=== PATIENT | female | born 1950 | race Caucasian/White ===

== ENCOUNTER 2016-10-23 18:54 | Emergency (ER) | payer OTHER ==
--- NOTE | ~2016-10-23 | CT4 ---
[facility] A Service of [facility] RADIOLOGY TEXT RESULTS PATIENT: SVETLANA KEATING LOCATION: [facility] : [birth year] UNIT #: [id number] AGE: [address]: Tomer Lopez MD SEX: F ORDER DR: [id number] [facility] [address] [place], [place] [address] [id number] E MR#: [id number] Acc #: [id number] NAME: SVETLANA KEATING : 1950 SEX: F STUDY DATE/TIME: 10/23/2016 20:26 UNIT: [facility] ROOM: STUDY DESCRIPTION: CT Abd and Pelv Wo Cont Attending Physician: Tomer Lopez Ordering Physician: Ed Doctor [id number] [facility] Primary Care Physician: Primary Care Physician No MEDICAL IMAGING REPORT This report is preliminary unless electronic signature is present EXAM CT abdomen and pelvis 10/23/16 INDICATIONS Painful knot an incision for kidney removal and 08/25/2016. TECHNIQUE Axial images were obtained through the abdomen and pelvis following oral contrast administration. Multiplanar reformats were obtained. COMPARISON STUDIES 08/09/2016. This CT exam was performed with one or more of the following radiation dose reduction techniques: automatic exposure control, adjustment of mA and/or kV according to patient size, and iterative reconstruction. FINDINGS Abdomen: There is some atelectasis in the lung bases. Gallbladder is unremarkable. Tiny nonobstructing stones are present in the right kidney. No ureteral stones are seen and there is no hydronephrosis. There has been interval left nephrectomy. There is some fat stranding in the operative bed which is not unexpected. There is splenomegaly. The spleen measures 16.6 cm in ldfl-ft-ngaz length. The unenhanced solid organs are otherwise normal. The GI tract is normal. There is a fluid and gas collection in the ventral abdominal wall corresponding to the area of palpable concern. This is above the umbilicus and extends down to the level of the umbilicus. It is poorly defined. It measures about 3.4 x 1.8 cm in greatest axial dimension. It may cover a length of as much as about 6 cm craniocaudally. This could be a seroma or an abscess. There is some overlying skin thickening suggesting some cellulitis. Correlate clinically with physical exam findings. [facility] A Service of [facility] RADIOLOGY TEXT RESULTS PATIENT: SVETLANA KEATING LOCATION: [facility] : [birth year] UNIT #: [id number] AGE: [address]: Tomer Lopez MD SEX: F ORDER DR: Pelvis: The urinary bladder is normal. Solid pelvic organs are normal. The appendix is normal. Remainder of the GI tract is normal as well. No suspicious osseous lesions in the abdomen or pelvis. IMPRESSION 1. Fluid and gas collection in the ventral abdominal wall to the left of midline corresponding to area of palpable concern. This could reflect an abscess. There is overlying skin thickening suggesting some cellulitis. Correlate with physical exam findings. 2. Interval left nephrectomy. There is postoperative fat stranding in the nephrectomy bed which is not unexpected. 3. Nonobstructing stones in the right kidney. No ureteral stones, and no hydronephrosis. 4. Splenomegaly. 5. Normal GI tract including the appendix. Dictated by... Jean Mario Jr., M.D. THIS IS AN ELECTRONICALLY VERIFIED REPORT Jean Mario Jr., M.D. at 10/24/2016 8:06 AM Daniel TD: 10/23/2016 22:27 JOB #: [id number] MEDICAL IMAGING REPORT Page 1 of 1 COPY
[2016-10-23 18:23] LABS: URINE SOURCE CLEAN CATCH
[2016-10-23 18:31] LABS: URINE APPEARANCE CLEAR; URINE BILIRUBIN NEG (NEG); URINE BLOOD NEG (NEG); URINE COLOR YELLOW; URINE GLUCOSE 100 MG/DL (NEG); URINE KETONE NEG (NEG); URINE LEUKOCYTE ESTERASE 2+ (NEG); URINE NITRATE NEG (NEG); URINE PH 6.5 (5-8); URINE PROTEIN TRACE (NEG); URINE SPECIFIC GRAVITY 1.016 (1.003-1.035)
[2016-10-23 18:33] LABS: CULTURE INDICATED? YES; U HYALINE CASTS AUWI 0-2 /[LPF]; URINE BACTERIA AUWI NEG (NEGATIVE); URINE SQUAMOUS EPITHELIAL CELL OCC /[HPF]; UWBCS1 AUWI 25-50 (0-5)
[~2016-10-23 18:54] MED LIST: ACETAMINOPHEN650 M3 PO; ACETAMINOPHEN650 M4 PO; ALBUTEROL17 GM INH; ALBUTEROL20 ml INH; ASPIR-TRIN325 MG PO; ASPIRIN81 M2 PO; ASPIRIN81 MG PO; ATENOLOL25 MG PO; BACTRIM DS TABL1 TA1 PO; BUSPIRONE HCL10 MG PO; CARAFATE1 G PO; CIPRO PO; CIPROFLOXACIN500 M1 PO; CLOPIDOGREL BIS75 MG PO; CLOPIDOGREL75 MG PO; DOCUSATE SODIU100 MG PO; ERYTHROMYC3.5 GM OPT OD; FLAGYL PO; FLEXERIL10 M1 PO; FLEXERIL10 MG PO; FLONASE 0.05% N16 G1; FLORASTORKIDS250 MG PO; GLUCOPHAGE500 M1 PO; GLUCOPHAGE500 MG PO; GUAIFENESIN W/C10 ML PO; HYDROCODON-ACE1 EAC7 PO; HYDROCODONE/APA1 T16 PO; HYDROXYZINE HCL25 M1 PO; IBUPROFEN800 MG PO; IMDUR-ER30 M1 PO; KEFLEX500 MG PO; KEPPRA500 M1 DOB; LEVAQUIN PO; LEVEMIR100 UNITS/ SUBQ; LIPITOR40 MG PO; LIPITOR80 MG PO; LORTAB 5/500 TA1 TA2 PO; LOW DOSE ASPIRI81 M2 PO; METFORMIN HCL500 M1 PO; MOTRIN600 M1 PO; MUCUS ER600 MG PO; MYSOLINE50 M1 PO; NO MEDS; PHENERGAN PO; PHENERGAN SUPP25 MG PR; PRADAXA150 MG PO; PREDNISONE PO; PRILOSEC PO; PROTONIX PO; RANEXA500 MG PO; RISA-BID CAPLE1 EAC1 PO; TENORMIN50 MG PO; TESSALON PERLE100 M1 PO; VICODIN 5/1 TAB 5/50 PO; ZESTRIL10 M1 PO; ZITHROMAX PO
[2016-10-23 18:57] LABS: BASOPHIL% 0.4 % (0-2.5); EOSINOPHIL% 0.5 % (0.0-7.0); HEMATOCRIT 33.7 % (35.0-45.0); HEMOGLOBIN 10.6 gm/dL (12.0-16.0); LYMPHOCYTE# 1.3 X10e3 (1.0-3.5); LYMPHOCYTE% 28.5 % (17.0-45.0); MEAN CELL VOLUME 78.5 FL (83-96); MEAN CORPUSCULAR HEMOGLOBIN 24.6 PG (28-34); MEAN CORPUSCULAR HGB CONC 31.4 g/dL (30-36); MEAN PLATELET VOLUME 7.8 FL (6.5-11.5); MONOCYTE# 0.5 X10e3 (0-1.0); MONOCYTE% 12.4 % (3.0-12.0); NEUTROPHIL# 2.6 X10e3 (1.5-7.1); NEUTROPHIL% 58.2 % (40-75); PLATELET COUNT 152 X10e3 (140-420); RED BLOOD COUNT 4.29 X10e (3.90-5.30); RED CELL DISTRIBUTION WIDTH 16.1 % (11.0-15.5); WHITE BLOOD COUNT 4.4 X10e3 (4.0-10.5)
[2016-10-23 18:58] LABS: DIFF IND NO
[2016-10-23 19:23] LABS: ALBUMIN SERUM 3.9 g/dL (3.5-5.0); BILIRUBIN, DIRECT 0.1 mg/dL (0.0-0.2); BILIRUBIN,INDIRECT 0.3 mg/dL (0.0-0.9); BILIRUBIN,TOTAL 0.4 mg/dL (0.2-2.0); CALCIUM SERUM 9.7 mg/dL (8.4-10.2); CREATININE SERUM 1.1 mg/dL (0.6-1.4); GLOM FILT RATE Estimated 53.4 mL/min (>60); POTASSIUM 3.6 mmol/L (3.5-5.1)
== END 2016-10-23 23:15 ==
LOC: CED 18:54
PROVIDERS: Emergency Medicine
DX: T81.4XXA Infection following a procedure, initial encounter (principal); L02.211 Cutaneous abscess of abdominal wall; L03.311 Cellulitis of abdominal wall; I10 Essential (primary) hypertension; F41.9 Anxiety disorder, unspecified; Z98.890 Other specified postprocedural states; Z90.5 Acquired absence of kidney; Z88.8 Allergy status to other drugs, medicaments and biological substances; Z79.82 Long term (current) use of aspirin; Z79.899 Other long term (current) drug therapy
CPT/HCPCS: 36415; 74176; 80048; 80076; 81003; 82150; 83690; 85025; 87086; 96361; 96374; 96375; 99285; J0696; J2270; J2405; J2765

== ENCOUNTER 2016-12-09 11:55 | Emergency (ER) | payer OTHER ==
--- NOTE | ~2016-12-09 | CR173 ---
[facility] A Service of [facility] RADIOLOGY TEXT RESULTS PATIENT: SVETLANA KEATING LOCATION: [facility] : 54 UNIT #: [id number] AGE: [address]: Pao Shaikh SEX: F ORDER DR: [id number] [facility] [address] [place], [place] [address] [id number] E MR#: [id number] Acc #: [id number] NAME: SVETLANA KEATING : 1950 SEX: F STUDY DATE/TIME: 12/09/2016 13:46 UNIT: [facility] ROOM: STUDY DESCRIPTION: CR Knee 3 Views Rt Attending Physician: Pao Shaikh Pa-C Ordering Physician: Chi De Jesus A.P.R.N. Primary Care Physician: No Primary Care Physician MEDICAL IMAGING REPORT This report is preliminary unless electronic signature is present EXAM Right knee, 3 views. COMPARISON October 20, 2015, and April 18, 2012. INDICATION 66-year-old female with right knee pain after falling today. FINDINGS There is stable calcified joint body in the anterior knee joint below the patella. This measures up to 8 mm. Second measurement measures up to a centimeter transverse. Bones are anatomically aligned. No evidence of acute fracture. No suprapatellar effusion. IMPRESSION 1. No acute fracture, dislocation or suprapatellar effusion. 2. Stable calcified joint body measuring up to a centimeter. Dictated by... Eben Sethi M.D. THIS IS AN ELECTRONICALLY VERIFIED REPORT Eben Sethi M.D. at 12/14/2016 8:54 PM BRIANA/fernanda TD: 12/09/2016 15:10 JOB #: [id number] MEDICAL IMAGING REPORT Page 1 of 1 COPY
== END 2016-12-09 15:17 | disposition home or self-care (01) ==
LOC: CFTX 11:55 → CED 11:55 → CFTX 12:53
DX: S89.91XA Unspecified injury of right lower leg, initial encounter (principal); E11.9 Type 2 diabetes mellitus without complications; I10 Essential (primary) hypertension; W01.0XXA Fall on same level from slipping, tripping and stumbling without subsequent striking against object, initial encounter; Y92.9 Unspecified place or not applicable
CPT/HCPCS: 73562; 99283

== ENCOUNTER 2017-01-28 13:35 | Emergency (ER) | payer OTHER ==
[~2017-01-28] VITALS: Ht 162.6 cm; Wt 66.7 kg
== END 2017-01-28 14:12 | disposition home or self-care (01) ==
LOC: CED 13:35
DX: K08.89 Other specified disorders of teeth and supporting structures (principal); E11.9 Type 2 diabetes mellitus without complications; I10 Essential (primary) hypertension; Z88.8 Allergy status to other drugs, medicaments and biological substances
CPT/HCPCS: 99282

== ENCOUNTER 2017-02-25 23:50 | Emergency (ER) | payer OTHER ==
--- NOTE | ~2017-02-25 | CT71 ---
[facility] A Service [facility] RADIOLOGY TEXT RESULTS PATIENT: SVETLANA KEATING LOCATION: [facility] : 54 UNIT #: [id number] AGE: [address]: Tomer Lopez MD SEX: F ORDER DR: [id number] [address] [address] [id number] E MR#: [id number] Acc #: [id number] NAME: SVETLANA KEATING : 1950 SEX: F STUDY DATE/TIME: 02/26/2017 1:33 UNIT: [facility] ROOM: STUDY DESCRIPTION: CT Head Wo Contrast Attending Physician: Socrates Lopez M.D. Ordering Physician: Socrates Lopez M.D. Primary Care Physician: Primary Care Physician No MEDICAL IMAGING REPORT This report is preliminary unless electronic signature is present EXAM CT head without contrast INDICATION Seizure and lethargy tonight. PROCEDURE Unenhanced CT of the head. This CT examination was performed with one or more of the following radiation dose reduction techniques: automatic exposure control, adjustment of mA and/or kV according to patient size, and iterative reconstruction. COMPARISON 02/20/2017. FINDINGS No acute hemorrhage, abnormal mass effect, extraaxial fluid collection or hydrocephalus. No depressed calvarial fracture. The paranasal sinuses and mastoid air cells are clear. IMPRESSION No acute intracranial findings. Dictated by... Socrates Montalvo M.D. THIS IS AN ELECTRONICALLY VERIFIED REPORT Socrates Montalvo M.D. at 02/26/2017 10:07 PM VIKA/ventura TD: 02/26/2017 08:00 JOB #: [id number] [facility] A Service of [facility] RADIOLOGY TEXT RESULTS PATIENT: SVETLANA KEATING LOCATION: [facility] : 54 UNIT #: [id number] AGE: [address]: Tomer Lopez MD SEX: F ORDER DR: MEDICAL IMAGING REPORT Page 1 of 1 COPY
[2017-02-26 00:23] LABS: POC - CKMB 1.9 ng/mL (0.0-7.9); POC - TROPONIN <0.05 ng/mL (<=0.05)
[2017-02-26 00:49] LABS: BASOPHIL% 0.3 % (0-2.5); EOSINOPHIL% 1.1 % (0.0-7.0); HEMATOCRIT 34.1 % (35.0-45.0); HEMOGLOBIN 11.1 gm/dL (12.0-16.0); LYMPHOCYTE# 1.2 X10e3 (1.0-3.5); MEAN CELL VOLUME 82.4 FL (83-96); MEAN CORPUSCULAR HEMOGLOBIN 26.9 PG (28-34); MEAN CORPUSCULAR HGB CONC 32.7 g/dL (30-36); MEAN PLATELET VOLUME 7.8 FL (6.5-11.5); MONOCYTE# 0.4 X10e3 (0-1.0); MONOCYTE% 12.6 % (3.0-12.0); NEUTROPHIL# 1.5 X10e3 (1.5-7.1); PLATELET COUNT 108 X10e3 (140-420); RED BLOOD COUNT 4.13 X10e (3.90-5.30); RED CELL DISTRIBUTION WIDTH 16.7 % (11.0-15.5); WHITE BLOOD COUNT 3.2 X10e3 (4.0-10.5)
[2017-02-26 00:50] LABS: DIFF IND NO
[2017-02-26 01:25] LABS: ALBUMIN SERUM 4.1 g/dL (3.5-5.0); ALKALINE PHOSPHATASE 59 U/L (32-92); ALT (SGPT) 25 U/L (10-40); AST (SGOT) 30 U/L (10-42); BILIRUBIN, DIRECT 0.1 mg/dL (0.0-0.2); BILIRUBIN,TOTAL <0.1 mg/dL (0.2-2.0); BLOOD UREA NITROGEN 12 mg/dL (9-23); BUN/CREATININE RATIO 13.33; CALCIUM SERUM 9.9 mg/dL (8.4-10.2); CARBON DIOXIDE 20 mmol/L (22-31); CHLORIDE 107 mmol/L (100-111); CREATININE SERUM 0.9 mg/dL (0.6-1.4); GLOM FILT RATE Estimated 67.6 mL/min (>60); GLUCOSE FASTING 283 mg/dL (70-110); POTASSIUM 3.5 mmol/L (3.5-5.1); SODIUM 138 mmol/L (135-145)
[2017-02-26 01:26] LABS: ALCOHOL BLOOD 163 mg/dL ([, 0])
[2017-02-26 02:30] LABS: URINE SOURCE CLEAN CATCH
[2017-02-26 02:38] LABS: URINE APPEARANCE CLEAR; URINE BILIRUBIN NEG (NEG); URINE BLOOD NEG (NEG); URINE COLOR YELLOW; URINE GLUCOSE 100 MG/DL (NEG); URINE KETONE NEG (NEG); URINE LEUKOCYTE ESTERASE 2+ (NEG); URINE NITRATE NEG (NEG); URINE PH 5.5 (5-8); URINE PROTEIN 2+ (NEG); URINE SPECIFIC GRAVITY 1.006 (1.003-1.035); URINE UROBILINOGEN 0.2 MG/DL (NEG)
[2017-02-26 02:41] LABS: CULTURE INDICATED? YES; URBCS1 AUWI 0-2 /[HPF] (0-2); URINE BACTERIA AUWI NEG (NEGATIVE); URINE SQUAMOUS EPITHELIAL CELL NONE SEEN /[HPF]
[2017-02-26 02:48] LABS: AMPHETAMINE NEG (NEG); BARBITURATES NEG (NEG); BENZODIAZEPINES NEG (NEG); COCAINE NEG (NEG); MARIJUANA NEG (NEG); OPIATES NEG (NEG); TRICYCLIC ANTIDEPRESSANTS NEG (NEG); U METHADONE NEG (NEG)
== END 2017-02-26 05:15 | disposition home or self-care (01) ==
LOC: CED 23:50
PROVIDERS: Emergency Medicine
DX: G40.89 Other seizures (principal); F10.129 Alcohol abuse with intoxication, unspecified; Y90.6 Blood alcohol level of 120-199 mg/100 ml; I10 Essential (primary) hypertension; G43.909 Migraine, unspecified, not intractable, without status migrainosus; F41.9 Anxiety disorder, unspecified; Z95.0 Presence of cardiac pacemaker; Z90.5 Acquired absence of kidney; Z88.8 Allergy status to other drugs, medicaments and biological substances
CPT/HCPCS: 36415; 70450; 80048; 80076; 80307; 81003; 82553; 82947; 84484; 85025; 87086; 96374; 99285; G0480; J3411; J3475